=== PATIENT | female | born 1990 | race Caucasian/White ===

== ENCOUNTER → 2017-02-14 | Outpatient (CLI) | payer OTHER ==
--- NOTE | 2017-02-14 15:07 | US ---
EXAMINATION TYPE: US pelvic complete DATE OF EXAM: 02/14/2017 COMPARISON: NONE CLINICAL HISTORY: N92.6 Irregular Menses. Patient going to start depo shot after next cycles, but nee ded to assess any abnormalities within pelvis that may be causing irregular cycles TECHNIQUE: TA, no TV, patient waited additional 20 mins to try and fill bladder Date of LMP: 12/2016 EXAM MEASUREMENTS: Uterus: 8.4 x 6.1 x 3.9 cm Endometrial Stripe: 1.2 cm Right Ovary: 4.7 x 2.4 x 2.6 cm Left Ovary: 2.7 x 2.2 x 2.0 cm 1. Uterus: Anteverted wnl 2. Endometrium: wnl 3. Right Ovary: wnl 4. Left Ovary: wnl 5. Bilateral Adnexa: wnl 6. Posterior cul-de-sac: wnl IMPRESSION: Unremarkable pelvic ultrasound with endometrial thickness of 1.2 cm, within normal limits for a premenopausal female.
== END | disposition home or self-care (01) ==
LOC: RADUSWWP 13:47
PROVIDERS: ATTEND Family Medicine
DX: N92.6 Irregular menstruation, unspecified (principal); N91.2 Amenorrhea, unspecified
CPT/HCPCS: 76856

== ENCOUNTER 2017-05-30 16:54 | Emergency (ER) | payer OTHER ==
[2017-05-30 17:06] VITALS: BP 133/81; PULSE 118; RESP 17; TEMP 97.9
--- NOTE | 2017-05-30 17:28 | ED ---
General Adult HPI - General Chief complaint: Recheck/Abnormal Lab/Rx Stated complaint: Piercing Infection Time Seen by Provider: 05/30/17 17:04 Source: patient, RN notes reviewed, old records reviewed Mode of arrival: ambulatory Limitations: no limitations - History of Present Illness Initial comments: this patient is 26-year-old female presents emergency Department 3 days of left breast redness, and minor swelling in her to touch and her metal bar. Patient reports that she's had no history of MRSA or any other skin infections she denies any fever, chills, nausea, vomiting chest pain or any other symptoms. - Related Data Previous Rx's Medication Instructions Recorded Cephalexin [Keflex] 500 mg PO Q6H #28 cap 05/30/17 Allergies Allergy/AdvReac Type Severity Reaction Status Date / Time No Known Allergies Allergy Verified 05/30/17 17:06 Review of Systems ROS Statement: Those systems with pertinent positive or pertinent negative responses have been documented in the HPI. ROS Other: All systems not noted in ROS Statement are negative. Past Medical History Past Medical History: No Reported History History of Any Multi-Drug Resistant Organisms: None Reported Past Surgical History: Cholecystectomy Past Psychological History: No Psychological Hx Reported Smoking Status: Never smoker Past Alcohol Use History: None Reported Past Drug Use History: Marijuana General Exam - General Exam Comments Initial Comments: 26-year-old female. No distress. Limitations: no limitations General appearance: alert, in no apparent distress Head exam: Present: atraumatic, normocephalic, normal inspection Eye exam: Present: normal appearance, PERRL, EOMI. Absent: scleral icterus, conjunctival injection, periorbital swelling ENT exam: Present: normal exam, mucous membranes moist Neck exam: Present: normal inspection. Absent: tenderness, meningismus, lymphadenopathy Respiratory exam: Present: normal lung sounds bilaterally, other (patient has bilateral nipple piercings. Patient has a 4 cm area of erythema over the left lower quadrant of the breast tissue. this is cellulitis,no palpable abscess..) Cardiovascular Exam: Present: regular rate, normal rhythm, normal heart sounds. Absent: systolic murmur, diastolic murmur, rubs, gallop, clicks Neurological exam: Present: alert, oriented X3, CN II-XII intact Psychiatric exam: Present: normal affect, normal mood Skin exam: Present: warm, dry, intact, normal color. Absent: rash Course Vital Signs 05/30/17 17:02 Temperature 97.9 F Pulse Rate 118 H Respiratory 17 Rate Blood Pressure 133/81 O2 Sat by Pulse 100 Oximetry Medical Decision Making - Medical Decision Making 26-year-old female with left breast redness and irritation for the past 3 days. Patient reports somewhat tender. She does have a for similar area of erythema over the left lower quadrant of the right breast tissue. She does have bilateral nipple piercings. I discussed that she needs to remove the piercing as this likely is related to the onset of cellulitis. I discussed starting the patient on Keflex. Motrin Tylenol and icing for pain. Discussed return to emergency department if the area of redness remnants or worsens in the next 24-48 hours. Patient agrees to treatment plan will comply. Return parameters were discussed. Disposition Clinical Impression: Cellulitis of left breast Disposition: HOME SELF-CARE Condition: Good Instructions: Cellulitis (ED) Additional Instructions: Patient advised to complete the antibiotic prescription. Follow-up with primary care physician. Return if there is any worsening redness or swelling to the area. Return to emergency department if any alarming signs or symptoms occur. Prescriptions: Cephalexin [Keflex] 500 mg PO Q6H #28 cap Referrals: Berta Johnson MD [Primary Care Provider] - 1-2 days Time of Disposition: 17:27
== END 2017-05-30 17:37 | disposition home or self-care (01) ==
LOC: EC 16:54
DX: N61.0 Mastitis without abscess (principal)
CPT/HCPCS: 99283

== ENCOUNTER → 2018-09-07 | Outpatient (CLI) | payer OTHER ==
--- NOTE | 2018-09-07 15:54 | US ---
EXAMINATION TYPE: Transabdominal DATE OF EXAM: 09/07/2018 3:33 PM COMPARISON: NONE CLINICAL HISTORY: Z34.80 encounter for normal . EXAM PERFORMED: Transabdominal (TA) EXAM MEASUREMENTS: GESTATIONAL AGE / DATING Physician Established: Not yet established Dates by LMP: (9 weeks/6 days) EDC: 04/06/2019 Dates by First Scan: No previous this is first scan Dates by Current Scan for: (10 weeks/5 days) EDC: 03/31/2019 MATERNAL ANATOMY Uterus: 13.0 x 6.5 x 7.4 cm Right Ovary: 2.5 x 2.0 x 1.7 cm Left Ovary: 4.1 x 2.4 x 2.2 cm Post CDS / Adnexa: wnl Presence of free fluid: none GESTATION / SURVEY CRL: 3.7 cm (10 weeks/5 days) Yolk Sac (normal less than 6mm): 0.4 cm Heart Rate: 128 bpm Rhythm: Normal IUP: Viable IUP Date of LMP: 06/30/2018 Beta HcG (if available): not available Viable IUP at 10 weeks 5 days. IMPRESSION: Single intrauterine gestation estimated at 10 weeks 5 days gestation crown-rump length. Cardiac activ ity measures 128 bpm.
== END | disposition home or self-care (01) ==
LOC: RADUSWWP 15:01
PROVIDERS: ATTEND Obstetrics & Gynecology
DX: Z34.81 Encounter for supervision of other normal pregnancy, first trimester (principal)
CPT/HCPCS: 76801

== ENCOUNTER → 2018-11-12 | Outpatient (CLI) | payer OTHER ==
--- NOTE | 2018-11-12 11:32 | US ---
EXAMINATION TYPE: US OB anatomy transabd DATE OF EXAM: 11/12/2018 COMPARISON: US HISTORY: Z34.80 supervision of other normal anatomy survey per physician's order; patient s tated she smokes marijuana; TECHNIQUE: Transabdominal (TA) EXAM MEASUREMENTS: GESTATIONAL AGE / DATING Physician Established: (19 weeks/2 days) EDC: 04/06/2019 Dates by LMP: (20 weeks/1 day) EDC: 03/31/2019 Dates by First Scan: (19 weeks/2 days) EDC: 04/06/2019 Dates by Current Scan for: (19 weeks/3 days) EDC: 04/05/2019 SURVEY IUP: Single PLACENTA: fundal posterior; focal myometrial contraction was noted at anterior uterine wall, and subs ided at exam's end. PREVIA: No previa DESHAWN: 14.8 cm Normal CERVICAL LENGTH (transabdominal: norm > 3.0cm): 5.3 cm BIOMETRY PRESENTATION: Vertex at exam's onset. LIE: Transverse lie with head maternal Right BPD: 4.4 cm 19 weeks / 2 days HC: 16.6 cm 19 weeks / 2 days AC: 13.9 cm 19 weeks / 2 days FL: 3.1 cm 19 weeks / 5 days ESTIMATED WEIGHT IN GRAMS: 294.5 grams ESTIMATED WEIGHT IN LBS/OZ: 0 lbs. 10 oz. WEIGHT PERCENTAGE BASED ON ESTABLISHED DATE from LMP: 14.6 % HC/AC: 1.19 Normal FL/AC: 22.5 Normal HEART RATE: 152 bpm RHYTHM: Normal ANATOMY SEEN (within normal limits): * Lateral Vent (< 1 cm) 0.4 cm * Cisterna Magna (< 1.1 cm) 0.4 cm * Nuchal Fold (< 0.6 cm) 0.3 cm * Cerebellum (varies with age) 19.3 cm Choroid Plexus (bilateral) Midline Falx Cavus Septi Pellucidi Four Chamber Heart Outflow tracts: LVOT/RVOT Stomach Situs Nose / Lips Diaphragm Kidneys (bilateral) Bladder Cord Insert Three Vessel Cord Longitudinal Spine Transverse Spine Arms (bilateral) Legs (bilateral) IMPRESSION: Single, live IUP with a calculated sonographic age of 19 weeks/3 days an estimated date of delivery o f 04/05/2019. Current heart rate of 152bpm.
== END | disposition home or self-care (01) ==
LOC: RADUSWWP 09:44
PROVIDERS: ATTEND Obstetrics & Gynecology
DX: Z36.9 Encounter for antenatal screening, unspecified (principal); Z3A.19 19 weeks gestation of pregnancy
CPT/HCPCS: 76811

== ENCOUNTER 2019-03-18 21:30 | Outpatient (CLI) | payer OTHER ==
[2019-03-18 22:24] VITALS: BP 109/55; PULSE 78; RESP 16; TEMP 97.6
--- NOTE | 2019-04-18 10:01 | P.MSEPDOC ---
Presenting Problems - Arrival Data Date of Arrival on Unit: 03/18/19 Time of Arrival on Unit: 21:30 Mode of Transport: Ambulatory - Complaint OB-Reason for Admission/Chief Complaint: Decreased Movement Comment: Patient arrives to triage and states she has not felt the baby move since. 1800. Patient denies any complications with this , leaking of fluid and any. bleeding. Medical History - Information : 2 Para: 1 Term: 0 : 0 Abortions: Spontaneous or Elective: 0 Number of Living Children: 1 - Gestational Age Gestational Age by ALEXANDRA (wks/days): 37 Weeks and 3 Days Review of Systems - Review of Systems Constitutional: No problems Breast: No problems ENT: No problems Cardiovascular: No problems Respiratory: No problems Gastrointestinal: No problems Genitourinary: No problems Musculoskeletal: No problems Neurological: No problems Skin: No problems Vital Signs - Temperature Temperature: 97.6 F Temperature Source: Temporal Artery Scan - Pulse Right Radial Pulse Rate: 78 Pulse Assessment Method: Automatic Cuff - Respirations Respiratory Rate: 16 Oxygen Delivery Method: Room Air O2 Sat by Pulse Oximetry: 98 - Blood Pressure Right Arm Blood Pressure: 109/55 Blood Pressure Mean: 73 Blood Pressure Source: Automatic Cuff Medical Screen Scoring (Pre) - Cervical Exam Dilation: Exam Deferred Effacement: Exam Deferred Membranes: Intact - Uterine Contractions Frequency: N/A Duration: N/A Intensity: N/A - Maternal Vital Signs Maternal Temperature: N/A Maternal Blood Pressure: N/A Maternal Respirations: N/A - Maternal Trauma Maternal Trauma: N/A - Assessment - Baby A Baseline FHR: 115 Heart Rate - NICHD Category: Category I (Normal) = 0 NST: Reactive Position: N/A Station: N/A - Total Score - Baby A Total Score - Baby A: 0 - Total Score - Baby B Total Score - Baby B: 0 - Total Score - Baby C Total Score - Baby C: 0 - Level of Risk - Baby A Level of Risk - Baby A: Low (0-5) - Level of Risk - Baby B Level of Risk - Baby B: Low (0-5) - Level of Risk - Baby C Level of Risk - Baby C: Low (0-5) Physician Notification (Pre) - Physician Notified Physician Notified Date: 03/18/19 Physician Notified Time: 22:01 New Order Received: Yes - Notification Comment Comment: RN reported to Dr. Ramirez that patient had not felt baby move since 18:00. Reactive NST reported, patient felt baby move five times in twenty minutes, patient. denies complications with the , no leaking fluid, and no bleeding. Dr. Ramirez states patient can be discharged with orders to keep follow up appointment. with Dr. Watkins. Patient verbalizes agreement. Disposition - Disposition OB Disposition: Discharge to home Discharge Date: 03/18/19 Discharge Time: 22:10 I agree with the RN Medical Screening Exam: Yes Risk & Benefit of care provided described in d/c instruction: Yes Diagnosis: DECREASED MOVEMENTS, THIRD TRIMESTER, FETUS 1
== END 2019-03-18 22:10 | disposition home or self-care (01) ==
LOC: FBPOP 21:30
PROVIDERS: ATTEND Obstetrics & Gynecology
DX: O36.8131 Decreased fetal movements, third trimester, fetus 1 (principal); Z3A.37 37 weeks gestation of pregnancy
CPT/HCPCS: 59025; G0463; 99213

== ENCOUNTER 2020-03-10 20:26 | Emergency (ER) | payer OTHER ==
[2020-03-10 20:55] VITALS: BP 134/75; PULSE 73; RESP 18; TEMP 98.3
[2020-03-10] MEDS ORDERED: MORPHINE SULFATE 4 MG/ML SYRINGE IM STA (21:17)
--- NOTE | 2020-03-10 21:19 | ED ---
General Adult HPI - General Chief complaint: Extremity Injury, Lower Stated complaint: pain/swelling LT ankle Time Seen by Provider: 03/10/20 21:07 Source: patient Mode of arrival: wheelchair Limitations: no limitations - History of Present Illness Initial comments: Dictation was produced using [employer] dictation software. please excuse any grammatical, word or spelling errors. This patient was cared for during a federal and state declared state of emergency secondary to Covid 19 Chief Complaint: 29-year-old feel presents with left ankle pain History of Present Illness: 79-year-old female she presents with left ankle pain approximately 30 minutes prior to arrival she was cleaning the bathroom when she took a step off to see. She inverted her ankle on the way coming down. Patient complains of left lateral malleolar pain. Patient takes control. She does not believe she is . The ROS documented in this emergency department record has been reviewed and confirmed by me. Those systems with pertinent positive or negative responses have been documented in the HPI. All other systems are other negative and/or noncontributory. PHYSICAL EXAM: General Impression: Alert and oriented x3, not in acute distress HEENT: Normocephalic atraumatic, extra-ocular movements intact, pupils equal and reactive to light bilaterally, mucous membranes moist. Cardiovascular: Heart regular rate and rhythm Chest: Able to complete full sentences, no retractions, no tachypnea Abdomen: abdomen soft, non-tender, non-distended, no organomegaly Musculoskeletal: Pulses present and equal in all extremities, no peripheral edema Left ankle: Swelling and pain at the left lateral malleolus Motor: no focal deficits noted Neurological: CN II-XII grossly intact, no focal motor or sensory deficits noted Skin: Intact with no visualized rashes Psych: Normal affect and mood ED course: 29-year-old female presents with left lateral ankle pain after inversion injury. vital signs upon arrival are within acceptable limits. Ankle and foot x-ray shows soft tissue edema overlying the lateral malleolus without acute osseous abnormality. No foot injuries. Patient given Brenden wrap. She is counseled on rest, ice, compression and elevation of the ankle. Presentation consistent with left ankle sprain. - Related Data Home Medications Medication Instructions Recorded Confirmed Estarylla 0.25-0.035 1 tab PO DAILY 03/10/20 03/10/20 Sertraline HCl [Zoloft] 100 mg PO DAILY 03/10/20 03/10/20 Allergies Allergy/AdvReac Type Severity Reaction Status Date / Time No Known Allergies Allergy Verified 03/10/20 21:43 Review of Systems ROS Statement: Those systems with pertinent positive or pertinent negative responses have been documented in the HPI. ROS Other: All systems not noted in ROS Statement are negative. Past Medical History Past Medical History: No Reported History History of Any Multi-Drug Resistant Organisms: None Reported Past Surgical History: Cholecystectomy Past Psychological History: Depression Smoking Status: Current every day smoker Past Alcohol Use History: None Reported Past Drug Use History: Marijuana General Exam Limitations: no limitations Course Vital Signs 03/10/20 20:52 Temperature 98.3 F Pulse Rate 73 Respiratory 18 Rate Blood Pressure 134/75 O2 Sat by Pulse 98 Oximetry Disposition Clinical Impression: Ankle sprain Disposition: HOME SELF-CARE Condition: Good Instructions (If sedation given, give patient instructions): Ankle Sprain (ED) Is patient prescribed a controlled substance at d/c from ED?: No Referrals: Berta Johnson MD [Primary Care Provider] - 1-2 days Time of Disposition: 22:10
--- NOTE | 2020-03-10 21:55 | XR ---
Result: Clinical History: Pain status post injury. Comparison: None available. Technique: AP, lateral and oblique views of the left ankle. AP, lateral and oblique views of the left foot. Findings: The bone mineralization is age-appropriate. Left ankle: There is soft tissue edema overlying the lateral malleolus. There is no acute fracture or dislocation. The visualized osseous structures are in anatomic alignment. The joint spaces are pre served. The talar dome is intact and the ankle mortise is congruent. Left foot: There is no acute fracture or dislocation. The visualized osseous structures are in anato cirstal alignment. The joint spaces are preserved. IMPRESSION: Soft tissue edema overlying the lateral malleolus without acute osseous abnormality of the left ankle or foot.
[2020-03-10] MEDS ORDERED: ACET/COD 300 MG/30 MG STARTER PACK 6 TAB BTL PO STA (22:10)
== END 2020-03-10 22:12 | disposition home or self-care (01) ==
LOC: EC 20:26
DX: S93.402A Sprain of unspecified ligament of left ankle, initial encounter (principal); F32.9 Major depressive disorder, single episode, unspecified; F17.200 Nicotine dependence, unspecified, uncomplicated; Z79.899 Other long term (current) drug therapy; X50.1XXA Overexertion from prolonged static or awkward postures, initial encounter
CPT/HCPCS: 73610; 73630; 99283; 96372; J2270

== ENCOUNTER 2023-02-21 23:27 | Emergency (ER) | payer OTHER ==
[2023-02-21 23:40] VITALS: RESP 18; TEMP 98.7
[2023-02-21] MEDS ORDERED: ACETAMINOPHEN TAB 500 MG TAB PO STA (23:45)
[2023-02-21] MEDS ORDERED: IBUPROFEN 800 MG TAB PO STA (23:45)
--- NOTE | 2023-02-21 23:48 | ED ---
Lower Extremity Injury HPI - General Chief Complaint: Extremity Injury, Lower Stated Complaint: Fall, Right ankle injury Time Seen by Provider: 02/21/23 23:34 Source: patient Mode of arrival: wheelchair Limitations: no limitations - History of Present Illness Initial Comments: 32-year-old female presenting with chief complaint of right ankle pain. Patient states that she fell off her porch injuring the ankle. Pain is mainly on the lateral portion. She admits to swelling. No discoloration or deformity. No numbness or tingling. - Related Data Home Medications Medication Instructions Recorded Confirmed Estarylla 0.25-0.035 1 tab PO DAILY 03/10/20 03/10/20 Sertraline HCl [Zoloft] 100 mg PO DAILY 03/10/20 03/10/20 Allergies Allergy/AdvReac Type Severity Reaction Status Date / Time No Known Allergies Allergy Verified 02/21/23 23:30 Review of Systems ROS Statement: Those systems with pertinent positive or pertinent negative responses have been documented in the HPI. ROS Other: All systems not noted in ROS Statement are negative. Past Medical History Past Medical History: No Reported History History of Any Multi-Drug Resistant Organisms: None Reported Past Surgical History: Cholecystectomy Past Psychological History: Depression Smoking Status: Current every day smoker Past Alcohol Use History: None Reported Past Drug Use History: Marijuana General Exam Limitations: no limitations General appearance: alert, in no apparent distress Head exam: Present: atraumatic, normocephalic, normal inspection Eye exam: Present: normal appearance, EOMI Neck exam: Present: normal inspection, full ROM Respiratory exam: Absent: respiratory distress Right Ankle exam: Present: tenderness, swelling. Absent: full ROM Neurovascular tendon exam: Present: no vascular compromise Neurological exam: Present: alert, oriented X3 Psychiatric exam: Present: normal affect, normal mood Skin exam: Present: warm, dry, intact, normal color. Absent: rash Course Vital Signs 02/21/23 02/22/23 23:28 02:04 Temperature 98.7 F Pulse Rate 84 80 Respiratory 18 18 Rate Blood Pressure 108/69 110/80 O2 Sat by Pulse 96 98 Oximetry Medical Decision Making - Medical Decision Making Was pt. sent in by a medical professional or institution (, PA, DETECTIVE AND INTELLIGENCE ANALYST, urgent care, hospital, or group home...) When possible be specific @ -No Did you speak to anyone other than the patient for history (EMS, parent, family, police, friend...)? What history was obtained from this source @ -No Did you review nursing and triage notes (agree or disagree)? Why? @ -I reviewed and agree with nursing and triage notes Were old charts reviewed (outside hosp., previous admission, EMS record, old EKG, old radiological studies, urgent care reports/EKG's, group home records)? Report findings @ -No old charts were reviewed Differential Diagnosis (chest pain, altered mental status, abdominal pain women, abdominal pain men, vaginal bleeding, weakness, fever, dyspnea, syncope, headache, dizziness, GI bleed, back pain, seizure, CVA, palpatations, mental health, musculoskeletal)? @ -Differential Musculoskeletal Muscular strain, contusion, ligament sprain, fracture, arthritis, septic arthritis, bursitis, cellulitis, muscle spasm, nerve compression, DVT, arterial occlusion, herpes zoster, electrolyte abnormality, tumor.... This is not meant to be in all inclusive list EKG interpreted by me (3pts min.). @ -As above X-rays interpreted by me (1pt min.). @ -X-ray negative for fracture or dislocation CT interpreted by me (1pt min.). @ -None done U/S interpreted by me (1pt. min.). @ -None done What testing was considered but not performed or refused? (CT, X-rays, U/S, labs)? Why? @ -None What meds were considered but not given or refused? Why? @ -None Did you discuss the management of the patient with other professionals (professionals i.e. , PA, DETECTIVE AND INTELLIGENCE ANALYST, lab, RT, psych nurse, social science analyst, weigh boss, teacher, fare enforcement officer, medical case worker)? Give summary @ -No Was smoking cessation discussed for >3mins.? @ -No Was critical care preformed (if so, how long)? @ -No Were there social determinants of health that impacted care today? How? (Homelessness, low income, unemployed, alcoholism, drug addiction, transportation, low edu. Level, literacy, decrease access to med. care, intermediate, rehab)? @ -No Was there de-escalation of care discussed even if they declined (Discuss DNR or withdrawal of care, Hospice)? DNR status @ -No What co-morbidities impacted this encounter? (DM, HTN, Smoking, COPD, CAD, Cancer, CVA, ARF, Chemo, Hep., AIDS, mental health diagnosis, sleep apnea, morbid obesity)? @ -None Was patient admitted / discharged? Hospital course, mention meds given and route, prescriptions, significant lab abnormalities, going to OR and other pertinent info. @ -32-year-old female presenting with chief complaint of right ankle injury. Physical exam is conducted. X-ray negative for fracture or dislocation. Patient is educated on ankle sprain supportive management. Provided with stirrup air cast and crutches. Follow-up with PCP. Report back to ER with any new or worsening symptoms. Discussed return parameters and answered all questions. Patient conveyed verbal understanding and agreed to the plan. I discussed this case in detail with my attending Dr. Francois Undiagnosed new problem with uncertain prognosis? @ -No Drug Therapy requiring intensive monitoring for toxicity (Heparin, Nitro, Insulin, Cardizem)? @ -No Were any procedures done? @ -No Diagnosis/symptom? @ -Ankle sprain Acute, or Chronic, or Acute on Chronic? @ -Acute Uncomplicated (without systemic symptoms) or Complicated (systemic symptoms)? @ -Uncomplicated Side effects of treatment? @ -No Exacerbation, Progression, or Severe Exacerbation? @ -No Poses a threat to life or bodily function? How? (Chest pain, [place], [place], pneumonia, PE, COPD, DKA, ARF, appy, cholecystitis, CVA, Diverticulitis, Homicidal, Suicidal, threat to staff... and all critical care pts) @ -No Disposition Clinical Impression: Ankle sprain Disposition: HOME SELF-CARE Condition: Good Instructions (If sedation given, give patient instructions): Ankle Sprain (ED) Additional Instructions: Follow-up with PCP. Report back to ER with any new or worsening symptoms. Take Motrin and Tylenol as needed for pain control. Rest, ice, compress, elevate the ankle. Is patient prescribed a controlled substance at d/c from ED?: No Referrals: Berta Johnson MD [Primary Care Provider] - 1-2 days Time of Disposition: 01:45
--- NOTE | 2023-02-22 02:01 | XR ---
EXAM: XR Right Ankle Complete, 3 or More Views CLINICAL HISTORY: ITS.REASON XR Reason: fall TECHNIQUE: Frontal, lateral and oblique views of the right ankle. COMPARISON: No relevant prior studies available. FINDINGS: Bones/joints: No acute osseous abnormalities. Soft tissues: Lateral soft tissue swelling. IMPRESSION: Lateral soft tissue swelling. No underlying acute osseous abnormality.
[2023-02-22 02:17] VITALS: BP 110/80; PULSE 80
== END 2023-02-22 02:26 | disposition home or self-care (01) ==
LOC: EC 23:27
DX: S93.401A Sprain of unspecified ligament of right ankle, initial encounter (principal); F17.200 Nicotine dependence, unspecified, uncomplicated; F32.A Depression, unspecified; F12.90 Cannabis use, unspecified, uncomplicated; Z79.899 Other long term (current) drug therapy; W18.30XA Fall on same level, unspecified, initial encounter
CPT/HCPCS: 99284